=== PATIENT | female | born 1995 | race African-American/Black ===

== ENCOUNTER 2019-01-05 19:56 | Emergency (ER) | payer SELFPAY ==
[~2019-01-05] VITALS: Ht 154.9 cm; Wt 54.9 kg
[2019-01-05 20:25] VITALS: BP 127/75
[2019-01-05] MEDS ORDERED: LIDOCAINE/EPI/TETRACAINE TOPICAL GEL 3 ML. TP ONE (21:45)
[2019-01-05] MEDS ORDERED: NAPR-514 PO (22:31)
[2019-01-05] MEDS ORDERED: PENI500T PO (22:31)
--- NOTE | 2019-01-05 22:32 | PHYS DOC ---
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 Pt also complains of pain at tooth #14. She denies any fever, abdominal pain, vomiting, diarrhea, ear pain, cough, sore throat, shortness of breath, or wheezing. She reports nausea and a decreased appetite. Currently, she rates her pain a 10/10 on the pain scale, she denies any alleviating factors, the pain increases with chewing and palpation. Review of Systems Review of Systems Constitutional: Denies fever or chills [] Eyes: Denies redness, or eye pain [] HENT: Denies nasal congestion or sore throat ; see HPI] Respiratory: Denies cough or shortness of breath [] Cardiovascular: No additional information not addressed in HPI [] GI: Denies abdominal pain, vomiting, or diarrhea; see HPI Musculoskeletal: Denies back pain or joint pain [] Integument: Denies rash or skin lesions [] Neurologic: Denies headache Complete systems were reviewed and found to be within normal limits, except as documented in this note. Current Medications Current Medications Current Medications Medications (Trade) Dose Ordered Sig/Debora Start Time Stop Time Status Last Admin Dose Admin Lidocaine/ Epinephrine (Let Topical) 3 ml 1X ONCE 01/05/19 21:45 01/05/19 22:07 DC 01/05/19 21:45 3 ML Naproxen (Naprosyn) 500 mg STK-MED ONCE 01/05/19 22:40 01/05/19 22:40 DC Allergies Allergies Allergies Coded Allergies Type Severity Reaction Last Updated Verified No Known Drug Allergies 01/05/19 No Physical Exam Physical Exam Constitutional: Well developed, well nourished, no acute distress, non-toxic appearance. [] HENT: Normocephalic, atraumatic, bilateral external ears normal, oropharynx moist, no oral exudates, nose normal; dental abscess measuring 1.5 cm in diamete r medial to tooth #14 with localized surrounding gingival erythema and dental decay present to tooth #14. [] Eyes: PERRLA, EOMI, conjunctiva normal, no discharge. [] Neck: Normal range of motion, no tenderness, supple, no stridor. [] Cardiovascular:Heart rate regular rhythm, no murmur [] Lungs & Thorax: Bilateral breath sounds clear to auscultation [] Skin: Warm, dry, no erythema, no rash. [] Extremities: No cyanosis, ROM intact, no edema. [] Neurologic: Alert and oriented X 3, no focal deficits noted. [] Psychologic: Affect normal, judgement normal, mood normal. [] Current Patient Data Vital Signs Vital Signs Date Time Temp Pulse Resp B/P (MAP) Pulse Ox O2 Delivery O2 Flow Rate FiO2 01/05/19 20:25 98.6 102 16 127/75 (92) 97 Room Air 98.6 EKG EKG [] Radiology/Procedures Radiology/Procedures While the patient was holding topical LET solution to the abscess site for anesthesia, the abscess opened and drained a large amount or purulent fluid. The area was palpated by myself and the remainder of the pus was expressed from the abscess site. Pt tolerated procedure well, no complications. [] Course & Med Decision Making Course & Med Decision Making Pertinent Labs and Imaging studies reviewed. (See chart for details) [] Dragon Disclaimer Dragon Disclaimer This electronic medical record was generated, in whole or in part, using a voice recognition dictation system. Departure Departure Impression: Primary Impression: Abscess, dental Additional Impression: Dentalgia Disposition: 01 HOME, SELF-CARE Condition: STABLE Referrals: NO PCP (PCP) Patient Instructions: Dental Abscess Additional Instructions: Fill prescription(s) and use as directed. Follow up with dentist using the referral list provided in the next 10 days. Return to the ER if symptoms worsen or you develop a fever over 100.4. Scripts Naproxen (NAPROXEN) 500 Mg Tablet 1 TAB PO BID for 10 Days, #20 TAB 0 Refills Prov: JANE BARROS APRN 01/05/19 Penicillin V Potassium (PENICILLIN V POTASSIUM) 500 Mg Tablet 1 TAB PO QID for 10 Days, #40 TAB Prov: JANE BARROS APRN 01/05/19 Problem Qualifiers JANE BARROS APRN Jan 05, 2019 22:32
[2019-01-05] MEDS ORDERED: NAPROXEN 500 MG TABLET ONE (22:40)
[2019-01-05] MEDS ORDERED: NAPROXEN 500 MG TABLET PO ONE (23:00)
== END 2019-01-05 22:44 | disposition home or self-care (01) ==
LOC: ER 19:56
DX: K04.7 Periapical abscess without sinus (principal); Z98.890 Other specified postprocedural states
CPT/HCPCS: 99283

== ENCOUNTER 2019-06-14 20:38 | Emergency (ER) | payer SELFPAY ==
[~2019-06-14] VITALS: Ht 162.6 cm; Wt 56.8 kg
[~2019-06-14 20:38] MED LIST: NAPR-514 PO; PENI500T PO
--- NOTE | 2019-06-14 20:57 | PHYS DOC ---
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 She describes wheezing, difficulty catching her breath. Blood pressure 155/83, heart rate 112, patient does smoke cigarettes. Denies any fever or chills. Nothing seems to improve her shortness of breath, nothing makes it worse. Patient denies any chest pain, nausea, vomiting, abdominal pain, headache or visual change. Unknown last menstrual period, urine test pending Review of Systems Review of Systems Constitutional: Denies fever or chills [] HENT: Denies nasal congestion or sore throat [] Respiratory: + cough/SOB Cardiovascular: No additional information not addressed in HPI [] GI: Denies abdominal pain, nausea, vomiting, bloody stools or diarrhea [] Musculoskeletal: Denies back pain or joint pain [] Integument: Denies rash or skin lesions [] Neurologic: Denies headache, focal weakness or sensory changes [] All other systems were reviewed and found to be within normal limits, except as documented in this note. Current Medications Current Medications Current Medications Medications (Trade) Dose Ordered Sig/Debora Start Time Stop Time Status Last Admin Dose Admin Albuterol/ Ipratropium (Duoneb) 3 ml 1X ONCE 06/14/19 21:00 06/14/19 21:01 DC 06/14/19 21:01 3 ML Methylprednisolone Sodium Succinate (SOLU-Medrol 125MG VIAL) 125 mg 1X ONCE 06/14/19 21:30 06/14/19 21:31 DC 06/14/19 21:11 125 MG Allergies Allergies Allergies Coded Allergies Type Severity Reaction Last Updated Verified No Known Drug Allergies 01/05/19 No Physical Exam Physical Exam Constitutional: Well developed, non-toxic appearance. [] HENT: Normocephalic, atraumatic, bilateral external ears normal, oropharynx moist, no oral exudates, nose normal. [] Eyes: PERRLA, EOMI, conjunctiva normal, no discharge. [] Neck: Normal range of motion, no tenderness, supple, no stridor. [] Cardiovascular:Tachycardia Lungs & Thorax: bilateral wheezing throughout all lung pike Abdomen: Bowel sounds normal, soft, no tenderness, no masses, no pulsatile masses. [] Skin: Warm, dry, no erythema, no rash. [] Back: No tenderness, no CVA tenderness. [] Extremities: No tenderness, no edema. [] Neurologic: Alert and oriented X 3, no focal deficits noted. [] Psychologic: Affect normal, judgement normal, mood normal. [] Current Patient Data Vital Signs Vital Signs Date Time Temp Pulse Resp B/P (MAP) Pulse Ox O2 Delivery O2 Flow Rate FiO2 06/14/19 21:01 100 Room Air 06/14/19 20:42 98.6 101 22 144/82 (102) 98.6 Lab Values Laboratory Tests Test 06/14/19 21:05 06/14/19 21:11 06/14/19 21:13 White Blood Count 10.9 x10^3/uL (4.0-11.0) Red Blood Count 4.53 x10^6/uL (3.50-5.40) Hemoglobin 8.8 g/dL (12.0-15.5) L Hematocrit 29.2 % (36.0-47.0) L Mean Corpuscular Volume 65 fL (79-100) L Mean Corpuscular Hemoglobin 20 pg (25-35) L Mean Corpuscular Hemoglobin Concent 30 g/dL (31-37) L Red Cell Distribution Width 17.8 % (11.5-14.5) H Platelet Count 583 x10^3/uL (140-400) H Neutrophils (%) (Auto) 59 % (31-73) Lymphocytes (%) (Auto) 29 % (24-48) Monocytes (%) (Auto) 6 % (0-9) Eosinophils (%) (Auto) 4 % (0-3) H Basophils (%) (Auto) 2 % (0-3) Neutrophils # (Auto) 6.5 x10^3/uL (1.8-7.7) Lymphocytes # (Auto) 3.2 x10^3/uL (1.0-4.8) Monocytes # (Auto) 0.6 x10^3/uL (0.0-1.1) Eosinophils # (Auto) 0.5 x10^3/uL (0.0-0.7) Basophils # (Auto) 0.2 x10^3/uL (0.0-0.2) Platelet Estimate Pending Sodium Level 139 mmol/L (136-145) Potassium Level 3.7 mmol/L (3.5-5.1) Chloride Level 104 mmol/L (98-107) Carbon Dioxide Level 24 mmol/L (21-32) Anion Gap 11 (6-14) Blood Urea Nitrogen 10 mg/dL (7-20) Creatinine 0.8 mg/dL (0.6-1.0) Estimated GFR (Cockcroft-Gault) 106.6 BUN/Creatinine Ratio 13 (6-20) Glucose Level 93 mg/dL (70-99) Calcium Level 8.7 mg/dL (8.5-10.1) Total Bilirubin 0.2 mg/dL (0.2-1.0) Aspartate Amino Transferase (AST) 23 U/L (15-37) Alanine Aminotransferase (ALT) 20 U/L (14-59) Alkaline Phosphatase 66 U/L (46-116) Total Protein 7.7 g/dL (6.4-8.2) Albumin 3.6 g/dL (3.4-5.0) Albumin/Globulin Ratio 0.9 (1.0-1.7) L Urine Collection Type Unknown Urine Color Yellow Urine Clarity Cloudy Urine pH 6.0 Urine Specific Reddick >=1.030 Urine Protein Negative mg/dL (NEG-TRACE) Urine Glucose (UA) Negative mg/dL (NEG) Urine Ketones (Stick) Negative mg/dL (NEG) Urine Blood Negative (NEG) Urine Nitrite Negative (NEG) Urine Bilirubin Negative (NEG) Urine Urobilinogen Dipstick 1.0 mg/dL (0.2 mg/dL) Urine Leukocyte Esterase Negative (NEG) Urine RBC 0 /HPF (0-2) Urine WBC Rare /HPF (0-4) Urine Squamous Epithelial Cells Many /LPF Urine Bacteria Few /HPF (0-FEW) POC Urine HCG, Qualitative Hcg positive (Negative) Laboratory Tests 06/14/19 21:05 Laboratory Tests 06/14/19 21:05 EKG EKG [] Radiology/Procedures Radiology/Procedures [] Course & Med Decision Making Course & Med Decision Making Pertinent Labs and Imaging studies reviewed. (See chart for details) []24-year-old female with underlying history of asthma no inhaler at home presents to the emergency Department complaints of shortness breath 2 days. She describes wheezing, difficulty catching her breath. Blood pressure 155/83, heart rate 112, patient does smoke cigarettes. Denies any fever or chills. Nothing seems to improve her shortness of breath, nothing makes it worse. Patient denies any chest pain, nausea, vomiting, abdominal pain, headache or visual change. Unknown last menstrual period, urine test pending. Labs reviewed CXR not performed given findings of Duoneb/Steroids provided in ER Recommend albuterol INH/Steroids as prescribed Smoking Cessation Dragon Disclaimer Dragon Disclaimer This electronic medical record was generated, in whole or in part, using a voice recognition dictation system. Departure Departure Impression: Primary Impression: Asthma exacerbation Disposition: HOME, SELF-CARE Condition: IMPROVED Referrals: NO PCP (PCP) Patient Instructions: Asthma, Adult, [id number] Additional Instructions: Recommend use inhaler as prescribed Recommend steroid burst x 3 days per prescription Follow up with PCP as needed Return to the ER with worsening shortness of breath, altered mental status, vaginal bleeding Stop smoking Scripts Prednisone (PREDNISONE) 50 Mg Tablet 1 TAB PO DAILY, #3 TAB Prov: MARCI MCDANIEL MD 06/14/19 Albuterol Sulfate (PROAIR HFA INHALER) 8.5 Gm Hfa.aer.ad 2 PUFF INH PRN Q6HRS PRN for SHORTNESS OF BREATH, #1 INHALER 0 Refills Prov: MARCI MCDANIEL MD 06/14/19 Problem Qualifiers Primary Impression: Asthma exacerbation Asthma severity: moderate Asthma persistence: unspecified Qualified Codes: J45.901 - Unspecified asthma with (acute) exacerbation MARCI MCDANIEL MD Jun 14, 2019 20:57
[2019-06-14] MEDS ORDERED: IPRATRPIUM/ALBUTEROL 0.5/2.5MG 3 ML NEBU. NEB ONE (21:00)
[2019-06-14 21:13] LABS: BASO # 0.2 x10^3/uL (0.0-0.2); BASO % 2 % (0-3); EOS # 0.5 x10^3/uL (0.0-0.7); EOS % 4 % (0-3); HEMATOCRIT 29.2 % (36.0-47.0); HEMOGLOBIN 8.8 g/dL (12.0-15.5); LYMPH # 3.2 x10^3/uL (1.0-4.8); LYMPH % 29 % (24-48); MEAN CORPUSCULAR HEMOGLOBIN 20 pg (25-35); MEAN CORPUSCULAR HGB CONC 30 g/dL (31-37); MEAN CORPUSCULAR VOLUME 65 fL (79-100); MONO # 0.6 x10^3/uL (0.0-1.1); MONO % 6 % (0-9); NEUT # 6.5 x10^3/uL (1.8-7.7); NEUT % 59 % (31-73); PLATELET COUNT 583 x10^3/uL (140-400); RED BLOOD COUNT 4.53 x10^6/uL (3.50-5.40); RED CELL DISTRIBUTION WIDTH 17.8 % (11.5-14.5); WHITE BLOOD COUNT 10.9 x10^3/uL (4.0-11.0)
[2019-06-14 21:18] LABS: BILIRUBIN,URINE NEGATIVE (NEG); CLARITY,URINE CLOUDY; COLOR,URINE YELLOW; NITRITE,URINE NEGATIVE (NEG); PROTEIN,URINE NEGATIVE (NEG-TRACE)
[2019-06-14 21:22] LABS: CALCIUM 8.7 mg/dL (8.5-10.1); CREATININE 0.8 mg/dL (0.6-1.0); GFR 106.6; POTASSIUM 3.7 mmol/L (3.5-5.1)
[2019-06-14 21:29] LABS: BACTERIA,URINE FEW /HPF (0-FEW); RBC,URINE 0 /HPF (0-2); SQUAMOUS EPITHELIAL CELL,UR MANY /LPF; WBC,URINE RARE /HPF (0-4)
[2019-06-14 21:30] LABS: ALBUMIN 3.6 g/dL (3.4-5.0); ALBUMIN/GLOBULIN RATIO 0.9 (1.0-1.7); TOTAL BILIRUBIN 0.2 mg/dL (0.2-1.0); TOTAL PROTEIN 7.7 g/dL (6.4-8.2)
[2019-06-14] MEDS ORDERED: methylPREDNISolone SOD SUCC PF 125 MG/2 ML VIAL. IV ONE (21:30)
[2019-06-14] MEDS ORDERED: ALBU2.5V8 INH (21:36)
[2019-06-14] MEDS ORDERED: PRED50TA PO (21:36)
[2019-06-14 21:43] VITALS: BP 119/56
[2019-06-14 21:48] LABS: ANISOCYTOSIS SLIGHT; HYPOCHROMIA MARKED; MICROCYTOSIS MARKED; PLT ESTIMATE INCREASED (ADEQUATE); POIKILOCYTOSIS SLIGHT; POLYCHROMASIA OCCASIONAL
[2019-06-14 21:49] LABS: OVALOCYTES OCC; SCHISTOCYTES OCC; TARGET CELLS OCC
[2019-06-14 21:50] LABS: BURR CELLS OCC; TEAR DROP CELLS OCC
== END 2019-06-14 21:56 | disposition home or self-care (01) ==
LOC: ER 20:38
DX: J45.901 Unspecified asthma with (acute) exacerbation (principal); R06.02 Shortness of breath; F17.210 Nicotine dependence, cigarettes, uncomplicated; Z98.890 Other specified postprocedural states
CPT/HCPCS: 36415; 80053; 81001; 81025; 85025; 94640; 96374; 99283; J2930